=== PATIENT | female | born 1975 | race Caucasian/White ===

== ENCOUNTER 2019-09-11 12:28 | Emergency (ER) | payer OTHER, SELFPAY ==
--- NOTE | ~2019-09-11 | XR_ITS ---
XR knee RT min 4V DATE: 09/11/2019 13:07 INDICATION: Patient fell on right knee. Right knee pain. TECHNIQUE: 4 views including crosstable lateral COMPARISON: None FINDINGS: No fracture or dislocation or joint effusion. No periosteal reaction or bone destruction. J oint spaces are well preserved. No radiopaque intra-articular loose body or chondrocalcinosis. IMPRESSION: Negative right knee Reviewed, dictated and finalized at location A. [employer] IMPRESSION: Negative right knee
[2019-09-11 12:40] VITALS: BP 157/99; PULSE 74; RESP 16; TEMP 37.2; O2SAT 100
--- NOTE | 2019-09-11 13:22 | ED.GENADULT ---
HPI - General Adult General Chief complaint: Extremity Injury, Lower Stated complaint: Right Knee Pain Time Seen by Provider: 09/11/19 13:25 Source: patient and RN notes reviewed Mode of arrival: ambulatory Limitations: no limitations History of Present Illness HPI narrative: Last night this patient was at her mother's house and there was ice on the bottom step of her house and she slipped and fell off and onto her right knee directly onto the kneecap. Is been mildly bruised, but not swollen. She did receive a superficial abrasion which is noninfected. She did not sustain any other injuries. She has no numbness or tingling sensation in the leg. She is taken ibuprofen which helps some with the discomfort. She is able to bear weight. It does not lock, click, pop, or give out on her. She did not injure any other body area and does not hurt in the mid tib-fib area or in the foot or through the rest of the femur at the hip. She otherwise has been feeling well without any ear pain, no nasal drainage, no sore throat, no fever, no cough. She has had no rashes. Related Data Home Medications Medication Instructions Recorded Confirmed aspirin 81 mg PO DAILY 09/11/19 09/11/19 atorvastatin 80 mg PO DAILY 09/11/19 09/11/19 lisinopril 20 mg PO DAILY 09/11/19 09/11/19 metformin 500 mg PO DAILY 09/11/19 09/11/19 metoprolol tartrate 100 mg PO DAILY 09/11/19 09/11/19 Allergies Allergy/AdvReac Type Severity Reaction Status Date / Time bacitracin Allergy Unknown Unknown Verified 09/11/19 13:20 benzalkonium chloride Allergy Unknown Unknown Verified 09/11/19 13:20 gramicidin D Allergy Unknown Unknown Verified 09/11/19 13:20 hydrocortisone Allergy Unknown Unknown Verified 09/11/19 13:20 latex Allergy Unknown Unknown Verified 09/11/19 13:20 polymyxin B Allergy Unknown Unknown Verified 09/11/19 13:20 BACITRACIN ZINC Allergy Unknown Unknown Uncoded 09/11/19 13:20 NEOMYCIN SULFATE Allergy Unknown Unknown Uncoded 09/11/19 13:20 POLYMYXIN B SULFATE Allergy Unknown Unknown Uncoded 08/23/19 09:15 Review of Systems Review of Systems: Narrative: CONSTITUTIONAL: Denies fever, chills, or sweats. Noncontributory except as pertains to the past medical history and history of present illness. EYES: Denies visual changes, redness, or discharge. ENT: Denies rhinorrhea, congestion, sore throat, or otalgia. CARDIOVASCULAR: Denies chest pain, palpitations, or edema. RESPIRATORY: Denies cough or dyspnea. GASTROINTESTINAL: Denies abdominal pain, nausea, vomiting, or diarrhea. GENITOURINARY: Denies dysuria or hematuria. SKIN: Denies rash or itching. MUSCULOSKELETAL: Denies back pain, joint pain, or myalgia. NEUROLOGIC: Denies headache, numbness, or weakness. PSYCHIATRIC: Denies anxiety or depression. [facility] Past Medical History Medical History (Updated 09/11/19 @ 13:24 by John Dixon MD) Adhesive capsulitis of right shoulder associated with type 2 diabetes mellitus Social History Social History Smoking status: Never smoker Alcohol intake: never Comments At time of signature, I have reviewed and agree with nursing past medical, surgical, social, and family history.Please see nursing chart for further information. There is no relevant family history pertinent to the presenting complaint. Exam Narrative: Exam Narrative: GENERAL: Well-appearing, well-nourished, and in no acute distress. HEAD: Normocephalic, atraumatic. EYES: PERRLA and EOMI. EARS: TM's clear bilaterally and the canals are clear. NOSE: Nares clear, no rhinorrhea or epistaxis. THROAT:Mucous membranes moist.Oropharynx Normal without erythema or exudates. NECK: Supple. No adenopathy of the neck, supraclavicular, axillary, or inguinal areas. No rashes or skin lesions except for the superficial abrasion over the right knee. There is no CVA pain. No pain McBurney's point. She has a negative Cueva sign and negative Rovsing sign. RESPI
== END 2019-09-11 13:35 | disposition home or self-care (01) ==
PROVIDERS: Emergency Provider Family Medicine
DX: S80.01XA Contusion of right knee, initial encounter (principal); W00.1XXA Fall from stairs and steps due to ice and snow, initial encounter; I10 Essential (primary) hypertension; I25.10 Atherosclerotic heart disease of native coronary artery without angina pectoris; I25.2 Old myocardial infarction; E11.9 Type 2 diabetes mellitus without complications; Z79.84 Long term (current) use of oral hypoglycemic drugs
CPT/HCPCS: 73564; 99213; G0463